=== PATIENT | female | born 1965 | race Caucasian/White ===

== ENCOUNTER → 2016-06-28 | Outpatient (CLI) | payer SELFPAY ==
--- NOTE | 2016-06-28 09:57 | KCIC ---
PROCEDURE Coronary artery calcium score dated06/28/2016. No comparison available. HISTORY Calcium screening. TECHNIQUE Computed tomography of the heart was performed with ECG gating, suspended respiration and without the administration of contrast material. Post processing was performed on the 3-D computer workstation using diastolic phase images to measure the amount of coronary vascular calcium. Scoring was acquired using the Agaston Method. COMPARISON None FINDINGS Thorax: No significant abnormality is identified in the lungs or mediastinum. Note that this CT exam is limited to the heart and adjacent structures. Coronary arteries: CALCIUM IS ABSENT TOTAL AGASTON CALCIUM SCORE EQUALS 0. Coronary vascular calcium is not detected with this exam. There is a tiny focus of increased density at or near the D1 segment or ramus intermedius that is thought to most likely be artifactual. This does not absolutely rule out the presence of atherosclerotic plaque, including unstable plaque, but does imply a very low likelihood of significant luminal narrowing or obstruction. A negative test may be consistent with a low risk of cardiovascular event in the next 2 to 5 years. IMPRESSION Normal study, no coronary artery calcium identified. RECOMMENDATIONS Healthy lifestyle choices including cessation of smoking and eating appropriately and exercise are encouraged. Additional supporting information concerning the findings and recommendation contained within this report can be found in the consensus statements on coronary vascular calcium published by the [employer] and [employer] 5 Conference (Circulation 1996; 94: 1397-3824; J Am Nathalie Cardiol 2000; 36: 326-340 and Circulation 2000; 101: 111-116). Electronically signed by: Enrique Alarcon (Jun 28, 2016 09:56:16)
== END | disposition home or self-care (01) ==
LOC: KCIC CT 07:51
PROVIDERS: ATTEND Family Medicine
DX: Z13.6 Encounter for screening for cardiovascular disorders (principal)
CPT/HCPCS: 75571

== ENCOUNTER → 2017-09-25 | Outpatient (CLI) | payer OTHER | END | disposition home or self-care (01) | LOC: MAMMO 09:16 | DX: Z12.31 Encounter for screening mammogram for malignant neoplasm of breast (principal) | CPT/HCPCS: 77063; 77067 ==

== ENCOUNTER → 2018-02-01 | Day surgery (SDC) | payer OTHER ==
[~2018-02-01] MED LIST: HYDROmorphone 2 MG/ML VIAL IV PRN; IV RINGERS,LACTATED 1000ML 1,000 ML IV SCH; LIDOCAINE 1% PF 2 ML VIAL. ID PRN; LIDOCAINE 1% PF 2 ML VIAL. ONE; MORPHINE SULFATE 2 MG/ML VIAL. IV PRN; ONDANSETRON PF 4 MG/2 ML VIAL. IV PRN; PROCHLORPERAZINE 10 MG/2 ML VIAL. IV PRN; PROPOFOL 40 ML IV ONE; fentaNYL PF VIAL 100 MCG/2 ML VIAL IV PRN
[2018-02-01 08:45] LABS: U PREG PATIENT NEGATIVE (NEG)
[2018-02-01 10:10] VITALS: BP 116/74
--- NOTE | 2018-02-02 12:10 | PATHOLOGY ---
[facility] Accession Number: [id number] . 01 Material submitted: . SIGMOID POLYP . 01 Clinical history: . Screening . 02 Diagnosis: Colon biopsies, sigmoid polyp: - Tubular adenoma. [facility] [place]/02/02/2018 . 02 Comment: There is no high-grade dysplasia or evidence of malignancy. (JPM:[facility] 02/02/2018) . 02 Electronically signed: . Memo Escudero MD, Pathologist NPI- [id number] . 01 Gross description: . Received in formalin labeled "Atilio, Keyla, sigmoid polyp," are 4 segments of mazariegos soft tissue measuring 0.9 x 0.6 x 0.2 cm in aggregate dimensions and ranging from 0.2 to 0.5 cm in maximum dimension. The specimen is submitted entirely in cassette A1. ([facility]; 02/01/2018) TOB/TOB . 02 Pathologist provided ICD-10: D12.5 . 02 CPT . 219444 Specimen Comment: A courtesy copy of this report has been sent to Specimen Comment: [phone], . Specimen Comment: Report sent to / DR ASCENCIO Specimen Comment: A duplicate report has been generated due to demographic updates. Performed at: 01 [facility] [address], [place], [place] [id number] MD Derek Pinon MD Phone: [phone] Performed at: 02 [facility] [address] [place], [place] [id number] MD Memo Escudero MD Phone: [phone]
== END | disposition home or self-care (01) ==
LOC: ENDOS 08:06
PROVIDERS: ATTEND Internal Medicine Gastroenterology
DX: Z12.11 Encounter for screening for malignant neoplasm of colon (principal); D12.5 Benign neoplasm of sigmoid colon; K57.30 Diverticulosis of large intestine without perforation or abscess without bleeding; K64.0 First degree hemorrhoids; Z82.49 Family history of ischemic heart disease and other diseases of the circulatory system; Z80.0 Family history of malignant neoplasm of digestive organs; Z72.89 Other problems related to lifestyle; Z79.899 Other long term (current) drug therapy; Z98.51 Tubal ligation status
CPT/HCPCS: 45380; 81025; 88305; J2704; 45385

== ENCOUNTER → 2018-11-29 | Outpatient (CLI) | payer OTHER ==
[2018-02-01 10:10] VITALS: BP 116/74
--- NOTE | 2018-12-01 16:16 | RAD ---
DATE: 11/29/2018 EXAM: MAMMO SHAHID SCREENING BILATERAL HISTORY: Routine screening COMPARISON: 01/29/2016, 09/25/2017 mammographic exams This study was interpreted with the benefit of Computerized Aided Detection (CAD). Breast Density: SCATTERED The breast parenchyma shows scattered fibroglandular densities. Breast parenchyma level B. FINDINGS: No suspicious calcification, dominant mass, or distortion in the interval. IMPRESSION: Stable BI-RADS CATEGORY: 1 NEGATIVE RECOMMENDED FOLLOW-UP: 12M 12 MONTH FOLLOW-UP PQRS compliance statement: Patient information was entered into a reminder system with a target due date in one year for the next mammogram. Mammography is a sensitive method for finding small breast cancers, but it does not detect them all and is not a substitute for careful clinical examination. A negative mammogram does not negate a clinically suspicious finding and should not result in delay in biopsying a clinically suspicious abnormality. "Our facility is accredited by the [employer] Mammography Program."
== END | disposition home or self-care (01) ==
LOC: MAMMO 10:17
PROVIDERS: ATTEND Family Medicine
DX: Z12.31 Encounter for screening mammogram for malignant neoplasm of breast (principal)
CPT/HCPCS: 77063; 77067

== ENCOUNTER → 2019-12-25 | Outpatient (CLI) | payer OTHER ==
[2018-02-01 10:10] VITALS: BP 116/74
--- NOTE | 2019-12-26 12:22 | RAD ---
DATE: 12/25/2019 EXAM: MAMMO SHAHID SCREENING BILATERAL HISTORY: Screening COMPARISON: 11/29/2018, 09/25/2017 This study was interpreted with the benefit of Computerized Aided Detection (CAD). Breast Density: The breast parenchyma shows scattered fibroglandular densities. Breast parenchyma level B. FINDINGS: No suspicious mass, suspicious calcification, or architectural distortion. IMPRESSION: No evidence of malignancy in either breast. BI-RADS CATEGORY: 1 NEGATIVE RECOMMENDED FOLLOW-UP: Annual screening mammogram. PQRS compliance statement: Patient information was entered into a reminder system with a target due date 12/25/2020 for the next mammogram. Mammography is a sensitive method for finding small breast cancers, but it does not detect them all and is not a substitute for careful clinical examination. A negative mammogram does not negate a clinically suspicious finding and should not result in delay in biopsying a clinically suspicious abnormality. "Our facility is accredited by the [employer] Mammography Program." RUTHD
== END ==
LOC: MAMMO 14:11
PROVIDERS: ATTEND Family Medicine
DX: Z12.31 Encounter for screening mammogram for malignant neoplasm of breast (principal); N64.89 Other specified disorders of breast
CPT/HCPCS: 77063; 77067

== ENCOUNTER → 2020-01-09 | Outpatient (CLI) | payer OTHER ==
[2018-02-01 10:10] VITALS: BP 116/74
[2020-01-09 11:10] LABS: BASO # 0.1 x10^3/uL (0.0-0.2); BASO % 1 % (0-3); EOS # 0.1 x10^3/uL (0.0-0.7); EOS % 1 % (0-3); HEMATOCRIT 37.7 % (36.0-47.0); HEMOGLOBIN 12.8 g/dL (12.0-15.5); LYMPH % 32 % (24-48); MEAN CORPUSCULAR HEMOGLOBIN 30 pg (25-35); MEAN CORPUSCULAR HGB CONC 34 g/dL (31-37); MEAN CORPUSCULAR VOLUME 87 fL (79-100); MONO # 0.4 x10^3/uL (0.0-1.1); MONO % 6 % (0-9); NEUT # 3.8 x10^3/uL (1.8-7.7); NEUT % 60 % (31-73); PLATELET COUNT 248 x10^3/uL (140-400); RED BLOOD COUNT 4.34 x10^6/uL (3.50-5.40); RED CELL DISTRIBUTION WIDTH 12.9 % (11.5-14.5); WHITE BLOOD COUNT 6.4 x10^3/uL (4.0-11.0)
[2020-01-09 11:43] LABS: ALBUMIN 3.8 g/dL (3.4-5.0); ALBUMIN/GLOBULIN RATIO 0.9 (1.0-1.7); CALCIUM 9.4 mg/dL (8.5-10.1); CHOLESTEROL/HDL RATIO 2.4; CREATININE 0.8 mg/dL (0.6-1.0); GFR 75.3; POTASSIUM 4.2 mmol/L (3.5-5.1); TOTAL BILIRUBIN 0.3 mg/dL (0.2-1.0)
[2020-01-10 03:12] LABS: HEMOGLOBIN A1C 5.5 % (4.8-5.6)
== END ==
LOC: LAB 10:35
PROVIDERS: ATTEND Family Medicine
DX: Z13.220 Encounter for screening for lipoid disorders (principal); E55.9 Vitamin D deficiency, unspecified; N95.9 Unspecified menopausal and perimenopausal disorder; R73.09 Other abnormal glucose
CPT/HCPCS: 36415; 80053; 80061; 82306; 83036; 83721; 85025

== ENCOUNTER → 2021-05-06 | Day surgery (SDC) | payer OTHER ==
[~2021-05-06] VITALS: Ht 170.2 cm; Wt 90.0 kg
[~2021-05-06] MED LIST changes: -HYDROmorphone 2 MG/ML VIAL IV PRN; -LIDOCAINE 1% PF 2 ML VIAL. ID PRN; -LIDOCAINE 1% PF 2 ML VIAL. ONE; +LIDOCAINE 2% PF 5 ML VIAL. ONE; -MORPHINE SULFATE 2 MG/ML VIAL. IV PRN; -ONDANSETRON PF 4 MG/2 ML VIAL. IV PRN; -PROCHLORPERAZINE 10 MG/2 ML VIAL. IV PRN; +PROPOFOL 10 MG/ML (20ML) VIAL. IV ONE; -PROPOFOL 40 ML IV ONE; -fentaNYL PF VIAL 100 MCG/2 ML VIAL IV PRN
[2021-05-06 08:23] VITALS: BP 159/83
--- NOTE | 2021-05-06 10:41 | PREOP HP ---
DATE OF SERVICE: 05/06/2021 REQUESTING PHYSICIAN: Dr. Catalina Mccurdy. PRIMARY CARE PHYSICIAN: Dr. Catalina Mccurdy. REASON FOR PROCEDURE: History of polyps. HISTORY OF PRESENT ILLNESS: This is a 55-year-old female who presents today for history of colon polyps. She is to undergo colonoscopy for further evaluation. PAST MEDICAL HISTORY: Colon polyps. MEDICATIONS: MAR reviewed. PAST SURGICAL HISTORY: Tubal ligation. SOCIAL HISTORY: No tobacco, alcohol or IV drug abuse. FAMILY MEDICAL HISTORY: No colon cancer. REVIEW OF SYSTEMS: A 13-point review of systems was done and is positive as per HPI and otherwise negative. PHYSICAL EXAMINATION: VITAL SIGNS: She is afebrile. Vital signs are stable. GENERAL: She is an obese female in no apparent distress. HEENT: Oropharynx is clear. CARDIOVASCULAR: S1, S2. LUNGS: Clear. ABDOMEN: Normoactive bowel sounds, soft, nontender, nondistended. EXTREMITIES: No edema. NEUROLOGIC: Awake, alert, oriented x 3. ASSESSMENT AND PLAN: History of colon polyps. The risks and benefits of colonoscopy including bleeding, perforation, nondiagnosis and sedation were explained and she has agreed to proceed. [employer]ER [employer]: Gaye TID: [id number]
[2021-05-06 10:44] VITALS: BP 156/76
--- NOTE | 2021-05-10 16:08 | PATHOLOGY ---
[facility] Accession Number: [id number] . 01 Material submitted: . PART A: colon - TRANSVERSE COLON POLYP. Modifiers: transverse PART B: colon - ASCENDING COLON POLYP BX. Modifiers: ascending PART C: sigmoid colon - SIGMOID COLON POLYP . 01 Clinical history: . SCREENING;COLONOSCOPY . 02 Diagnosis: A. Colon biopsies, transverse colon polyp: - Tubular adenoma. . B. Colon biopsy, ascending colon polyp: - Hyperplastic polyp. . C. Colon biopsies, sigmoid colon polyp: - Tubular adenoma. (JPM:[facility]; 05/10/2021) S 05/10/2021 0906 Local . 02 Comment: There is no high grade dysplasia or evidence of malignancy. (JPM:[facility]; 05/10/2021) . 02 Electronically signed: . Memo Escudero MD, Pathologist NPI- [id number] . 01 Gross description: . A. The specimen is received in formalin, labeled "Atilio, Keyla, transverse colon polyp" and consists of 2 mazariegos irregular tissues aggregating 0.5 x 0.3 x 0.2 cm which are submitted in toto in A1. . B. The specimen is received in formalin, labeled "Atilio, Keyla, ascending colon polyp BX" and consists of a mazariegos irregular tissue measuring 0.3 x 0.2 x 0.2 cm which is submitted in toto in B1. . C. The specimen is received in formalin, labeled "Atilio, Keyla, sigmoid colon polyp" and consists of 2 mazariegos irregular tissues aggregating 0.4 x 0.4 x 0.2 cm. The largest tissue is bisected. The specimen is submitted entirely in C1.([place]; 05/07/2021) DKA/DKA 05/07/2021 1318 Local . 02 Pathologist provided ICD-10: D12.3, D12.5, K63.5 . 02 CPT . 188852, 507965, 247653 Specimen Comment: A courtesy copy of this report has been sent to [phone] Specimen Comment: Report sent to Performed at: [address] [facility] [address], [place], [place] [id number] MD Ranjit Saravia MD Phone: [phone] Performed at: 02 [facility] [address] [place], [place] [id number] MD Memo Escudero MD Phone: [phone]
== END | disposition home or self-care (01) ==
LOC: SURG 08:05
PROVIDERS: ATTEND Internal Medicine Gastroenterology
DX: Z12.11 Encounter for screening for malignant neoplasm of colon (principal); K64.0 First degree hemorrhoids; K57.30 Diverticulosis of large intestine without perforation or abscess without bleeding; D12.3 Benign neoplasm of transverse colon; D12.5 Benign neoplasm of sigmoid colon; K63.89 Other specified diseases of intestine; Z86.010 Personal history of colon polyps; Z79.899 Other long term (current) drug therapy; Z98.51 Tubal ligation status; Z98.890 Other specified postprocedural states
CPT/HCPCS: 45380; 45385; 88305; J2704; 45384